=== PATIENT | female | born 1950 | race American Indian/Alaskan Native ===

== ENCOUNTER 2016-08-29 14:38 | Emergency (ER) | payer MEDICAID ==
[2016-08-29 16:39] LABS: Basophils % (Auto) 0.9 % (0.0-1.8); Eosinophils % (Auto) 2.9 % (0.0-4.3); Hematocrit 36.3 % (30.3-42.9); Hemoglobin 11.7 gm/dl (10.1-14.3); Mean Corpuscular HGB Conc 32 % (30-34); Mean Corpuscular Hemoglobin 29 pg (28-32); Mean Corpuscular Volume 90 fl (79-97); Platelet Count 295 K/mm3 (140-440); Red Blood Count 4.03 M/mm3 (3.65-5.03); Red Cell Distribution Width 13.7 % (13.2-15.2)
[2016-08-29 16:55] LABS: Alanine Aminotransferase 9 units/L (7-56); Albumin 3.8 g/dL (3.9-5); Alkaline Phosphatase 117 units/L (35-129); Anion Gap 16 mmol/L; Bilirubin,Total 0.2 mg/dL (0.1-1.2); Blood Urea Nitrogen 15 mg/dL (7-17); Calcium 8.9 mg/dL (8.4-10.2); Carbon Dioxide 28 mmol/L (22-30); Chloride 100.5 mmol/L (98-107); Glucose 120 mg/dL (65-100); Lipase 23 units/L (13-60); Potassium 3.9 mmol/L (3.6-5.0); Sodium 141 mmol/L (137-145); Total Protein 7.7 g/dL (6.3-8.2)
[2016-08-29] MEDS ORDERED: APRESOLINE IV ONE (22:28)
--- NOTE | 2016-08-29 22:37 | Emergency Department Report ---
ED General Adult HPI - General Chief complaint: High BP Stated complaint: HYPERTENSIVE EPISODE Time Seen by Provider: 08/29/16 21:58 Source: EMS Mode of arrival: Stretcher Limitations: No Limitations - History of Present Illness Initial comments: 66-year-old female with a past medical history of diabetes, asthma, hypertension , and psychiatric disorder presents to Hospital complaints of elevated blood pressure. Patient complains of feeling tired and having intermittent headaches as per triage area, patient states that she feels better and her headache has since resolved. She admits to drinking a little bit of beer today. Also denies blurred vision, chest pain, shortness of breath, nausea, vomiting, abdominal pain, or focal weakness. Patient is prescribed multiple psychiatric medications as well as hydralazine 25mg 3 times a day for her blood pressure. Patient has poor vision and relies on her daughter to tell her how much of her medication to take. Patient has been taking hydralazine on average one time a day and sometimes twice a day as opposed to 3 times a day as prescribed. - Related Data Home Medications Medication Instructions Recorded Confirmed Last Taken Sertraline [Zoloft] 50 mg PO QDAY 08/29/16 08/29/16 08/29/16 clonazePAM 0.5 mg PO DAILY 08/29/16 08/29/16 08/29/16 hydrALAZINE [Apresoline] 25 mg PO Q8HR 08/29/16 08/29/16 08/29/16 risperiDONE [RisperiDONE] 1 mg PO QDAY 08/29/16 08/29/16 08/29/16 Allergies Allergy/AdvReac Type Severity Reaction Status Date / Time Penicillins Allergy Unknown Verified 09/12/15 10:54 ED Review of Systems ROS: Stated complaint: HYPERTENSIVE EPISODE Other details as noted in HPI Comment: All other systems reviewed and negative Other: Constitutional: No fevers chills Eyes: No eye pain visual changes ENT: No ear pain or throat pain Neck: Denies pain Respiratory: Denies cough wheezing shortness of breath Cardiovascular: Denies chest pain, palpitations, syncope GI: Denies abdominal pain, nausea, vomiting, diarrhea : Denies dysuria Musculoskeletal: Denies back pain, joint swelling Skin: Denies rash, lesions, erythema Neurologic: Denies numbness, weakness Psychiatric: Denies suicidal ideation, hallucinations ED Past Medical Hx - Past Medical History Hx Hypertension: Yes Hx Diabetes: Yes (off insulin) Hx Psychiatric Treatment: Yes Hx Asthma: Yes - Surgical History Additional Surgical History: partial hysterectomy - Social History Smoking Status: Current Every Day Smoker Substance Use Type: Alcohol - Medications Home Medications: Home Medications Medication Instructions Recorded Confirmed Last Taken Type Sertraline [Zoloft] 50 mg PO QDAY 08/29/16 08/29/16 08/29/16 History clonazePAM 0.5 mg PO DAILY 08/29/16 08/29/16 08/29/16 History hydrALAZINE [Apresoline] 25 mg PO Q8HR 08/29/16 08/29/16 08/29/16 History risperiDONE [RisperiDONE] 1 mg PO QDAY 08/29/16 08/29/16 08/29/16 History ED Physical Exam - General Limitations: No Limitations - Other Other exam information: General: No limitations, patient is alert in no acute distress Head exam: Atraumatic, normocephalic Eyes exam: Normal appearance ENT: Moist mucous membrane, normal oropharynx Neck exam: Normal inspection, full range of motion Respiratory exam: Clear to auscultation bilateral, no wheezes, rales, crackles Cardiovascular: Normal rate and rhythm, normal heart sounds Abdomen: Soft, nondistended, and nontender, with normal bowel sounds, no rebound, or guarding Extremity: Full range of motion normal inspection no deformity Back: Normal Inspection, full range of motion, no tenderness Neurologic: Alert, oriented x3, cranial nerves intact, no motor or sensory deficit Psychiatric: normal affect, normal mood Skin: Warm, dry, intact ED Course Vital Signs 08/29/16 08/29/16 08/29/16 15:57 22:50 22:52 Temperature 98.4 F Pulse Rate 66 87 91 H Respiratory 20 16 Rate Blood Pressure 205/91 255/84 Blood Pressure 255/84 [Left] O2 Sat by Pulse 100 99 Oximetry 08/29/16 08/30/16 23:24 00:09 Temperature 98.2 F Pulse Rate 81 Respiratory 16 18 Rate Blood Pressure Blood Pressure 161/53 [Left] O2 Sat by Pulse 99 18 L Oximetry - Reevaluation(s) Reevaluation #1: 08/29/16 22:40 Systolic blood pressure elevated Meds ordered: Hydralazine 20 mg IV ED Medical Decision Making - Lab Data Result diagrams: 08/29/16 16:17 08/29/16 16:17 Lab Results 08/29/16 08/29/16 Range/Units 16:17 16:17 WBC 5.0 (4.5-11.0) K/mm3 RBC 4.03 (3.65-5.03) M/mm3 Hgb 11.7 (10.1-14.3) gm/dl Hct 36.3 (30.3-42.9) % MCV 90 (79-97) fl MCH 29 (28-32) pg MCHC 32 (30-34) % RDW 13.7 (13.2-15.2) % Plt Count 295 (140-440) K/mm3 Lymph % (Auto) 45.6 H (13.4-35.0) % Greene % (Auto) 5.8 (0.0-7.3) % Eos % (Auto) 2.9 (0.0-4.3) % Baso % (Auto) 0.9 (0.0-1.8) % Lymph # 2.3 (1.2-5.4) K/mm3 Greene # 0.3 (0.0-0.8) K/mm3 Eos # 0.1 (0.0-0.4) K/mm3 Baso # 0.0 (0.0-0.1) K/mm3 Seg Neutrophils % 44.8 (40.0-70.0) % Seg Neutrophils # 2.2 (1.8-7.7) K/mm3 Sodium 141 (137-145) mmol/L Potassium 3.9 (3.6-5.0) mmol/L Chloride 100.5 (98-107) mmol/L Carbon Dioxide 28 (22-30) mmol/L Anion Gap 16 mmol/L BUN 15 (7-17) mg/dL Creatinine 1.0 (0.7-1.2) mg/dL Estimated GFR > 60 ml/min BUN/Creatinine Ratio 15.00 % Glucose 120 H (65-100) mg/dL Calcium 8.9 (8.4-10.2) mg/dL Total Bilirubin 0.2 (0.1-1.2) mg/dL AST 11 (5-40) units/L ALT 9 (7-56) units/L Alkaline Phosphatase 117 (35-129) units/L Troponin T < 0.010 (0.00-0.029) ng/mL Total Protein 7.7 (6.3-8.2) g/dL Albumin 3.8 L (3.9-5) g/dL Albumin/Globulin Ratio 1.0 % Lipase 23 (13-60) units/L - Medical Decision Making BP improved with hydralazine 20 mg IV Patient's blood pressure is likely elevated secondary to medication noncompliance. Patient is not taking her hydralazine 3 times a day as prescribed. She was reeducated on taking her medication appropriately and primary care doctor follow-up will be encouraged - Differential Diagnosis hypertensive emergency/urgency, medication noncompliance Critical Care Time: No Critical care attestation.: If time is entered above; I have spent that time in minutes in the direct care of this critically ill patient, excluding procedure time. ED Disposition Clinical Impression: Hypertension, uncontrolled, Noncompliance with medication regimen Disposition: DISCHARGED TO HOME OR SELFCARE Is pt being admited?: No Does the pt Need Aspirin: No Condition: Stable Instructions: Hypertension (ED) Additional Instructions: Continue your blood pressure medication hydralazine 25 mg every 8 hours which will be 3 times a day. Follow-up with your doctor for further management. Return if symptoms worsen. Referrals: PRIMARY CARE, [Primary Care Provider] - 3-5 Days DEEPTI FUNES MD [Staff Physician] - 3-5 Days (Paterty doctor if you do not currently have a primary care) Time of Disposition: 00:24
[2016-08-29 23:25] VITALS: BP 161/53
[2016-08-30 01:01] LABS: Bacteria,Urine 2+ /HPF (Negative); Bilirubin,Urine NEG (Negative); Blood,Urine NEG (Negative); Ketones,Urine NEG (Negative); Leukocyte Esterase,Urine NEG (Negative); Mucus,Urine FEW /HPF; Nitrite,Urine NEG (Negative); Urobilinogen,Urine < 2.0 mg/dL (<2.0)
== END 2016-08-30 01:14 | disposition home or self-care (01) ==
LOC: ED 14:38
DX: I10 Essential (primary) hypertension (principal); Z91.14 Patient's other noncompliance with medication regimen; E11.9 Type 2 diabetes mellitus without complications; J45.909 Unspecified asthma, uncomplicated; F17.200 Nicotine dependence, unspecified, uncomplicated
CPT/HCPCS: 36415; 80053; 81001; 83690; 84484; 85025; 93005; 93010; 96374; 99284; J0360